=== PATIENT | male | born 1990 | race Caucasian/White ===

== ENCOUNTER 2019-11-12 17:33 | Emergency (ER) | payer OTHER ==
[~2019-11-12] VITALS: Ht 177.8 cm; Wt 62.1 kg
[~2019-11-12 17:33] MED LIST: IBUP-1223; OMEP40CA3; SUCR1TAB33
--- NOTE | 2019-11-12 17:57 | NUR ---
SUPERVISOR WINTER: PT AMBULATORY WITH STEADY GAIT TO ROOM AT THIS TIME. KATLIN
--- NOTE | 2019-11-12 18:11 | NUR ---
FIRST CONTACT WITH PT. PT C/O "I HAVE AN INFECTION IN MY EYES THAT KEEPS GOING AWAY AND COMING BACK. MY DOCTOR AND I HAVE TRIED EVERYTHING." PT SENT PCP - DR. TYSON MARSHALL. PT REPORTS DRAINAGE, CRUSTING AND SWELLING. PT'S AOX4. RESPS EVEN AND UNLABORED.
--- NOTE | 2019-11-12 18:47 | NUR ---
BS report from Ai RN, pt care transferred to this RN at this time.
--- NOTE | 2019-11-12 18:50 | NUR ---
REPORT GIVEN TO VERNELL RUIZ.
--- NOTE | 2019-11-12 18:53 | NUR ---
FIRST CONTACT WITH PT: PT SITTING UP IN EXAM CHAIR, CHACORTA MONTILLA AT FOR EVAL AND POC. PT SKIN COLOR WNL, P/W/D, NAD, FCS NO SOB NOTED, GROSS NEURO INTACT, MAEx4. RN WCTM. WAITING FOR MD ORDERS. PT CALL LIGHT ON LAP.
[2019-11-12] MEDS ORDERED: CIPROFLOXACIN OPHTH SOLN 0.3%, 5ML EACHEYE SCH (19:00)
[2019-11-12] MEDS ORDERED: ERYTHROMYCIN OPHTH 0.5%, 1GM EACHEYE ONE (19:00)
[2019-11-12 19:20] VITALS: BP 113/79
--- NOTE | 2019-11-12 19:21 | NUR ---
Patient given discharge instructions and they have confirmed that they understand the instructions. Patient ambulatory with steady gait. DENIES ADDITIONAL QUESTIONS AT THIS TIME. NO BELONGINGS LEFT IN ROOM AT TIME OF DC. NAD, P/W/D, RESP WNL, VSS.
== END 2019-11-12 19:23 | disposition home or self-care (01) ==
LOC: ED 19:10
DX: H01.00B Unspecified blepharitis left eye, upper and lower eyelids (principal); H01.00A Unspecified blepharitis right eye, upper and lower eyelids; F17.200 Nicotine dependence, unspecified, uncomplicated
CPT/HCPCS: 99283